=== PATIENT | male | born 1945 | race Caucasian/White ===

== ENCOUNTER 2018-11-11 07:30 | Inpatient (IN) | payer MEDICARE ==
[~2018-11-11] VITALS: Ht 170.2 cm; Wt 97.7 kg
[2018-11-21 14:41] LABS: BASOPHILS # (AUTO) 0.1 X10'3 (0-0.2); BASOPHILS % (AUTO) 0.9 % (0-1); EOSINOPHILS # (AUTO) 0.3 X10'3 (0-0.9); EOSINOPHILS % (AUTO) 4.8 % (0-6); LYMPHOCYTES # (AUTO) 1.9 X10'3 (1.1-4.8); LYMPHOCYTES % (AUTO) 26.4 % (21-51); MEAN CORPUSCULAR HEMOGLOBIN 29.7 PG (27.0-31.0); MEAN CORPUSCULAR HGB CONC 33.6 g/dL (33.0-36.5); MEAN CORPUSCULAR VOLUME 88.5 FL (78-98); MEAN PLATELET VOLUME 8.2 FL (7.4-10.4); MONOCYTES # (AUTO) 0.7 X10'3 (0-0.9); MONOCYTES % (AUTO) 9.2 % (2-12); NEUTROPHILS # (AUTO) 4.2 X10'3 (1.8-7.7); NEUTROPHILS % (AUTO) 58.7 % (42-75); PRE OP HEMATOCRIT 39.2 % (42.0-52.0); PRE OP HEMOGLOBIN 13.2 g/dL (14.0-17.9); PRE OP PLATELET COUNT 248 X10'3 (140-440); RED BLOOD COUNT 4.43 X10'6 (4.70-6.10); RED CELL DISTRIBUTION WIDTH 13.9 % (11.5-14.5)
[2018-11-21 14:42] LABS: CLARITY,URINE CLEAR (Clear); COLOR,URINE YELLOW (Yellow); GLUCOSE, URINE NEGATIVE (Neg); KETONES,URINE NEGATIVE (Neg); LEUKOCYTE ESTERASE ,URINE NEGATIVE (Neg); NITRITES, URINE NEGATIVE (Neg); OCCULT BLOOD,URINE NEGATIVE (Neg); PROTEIN,URINE NEGATIVE (Neg); UROBILINOGEN,URINE 0.2 E.U/dL (0.2-1.0)
[2018-11-21 14:52] LABS: ALBUMIN 3.8 G/DL (3.4-5.0); ALBUMIN/GLOBULIN RATIO 1.2 (1.1-1.5); ALKALINE PHOSPHATASE 82 IU/L (46-116); BLOOD UREA NITROGEN 16 MG/DL (7-18); BUN/CREATININE RATIO 15.4 (5.4-32.0); CALCIUM 9.2 MG/DL (8.5-10.1); CHLORIDE 104 MMOL/L (99-107); CREATININE 1.04 MG/DL (0.60-1.10); PRE OP ALT 32 U/L (30-65); PRE OP ANION GAP 9 (8-16); PRE OP AST 17 U/L (10-37); PRE OP BILIRUB, TOTAL 0.3 MG/DL (0.0-1.0); PRE OP GLUCOSE 88 MG/DL (70-104); PRE OP POTASSIUM 4.1 MMOL/L (3.4-5.1); PRE OP SODIUM 140 MMOL/L (135-145); TOTAL CARBON DIOXIDE 27.1 MMOL/L (24-32); TOTAL PROTEIN 7.1 G/DL (6.4-8.2); eGFR 70 ML/MIN
[2018-11-21 14:54] LABS: UA COLLECTION TYPE CLN CATCH MIDSTREAM
[2018-11-21] MEDS ORDERED: LISI10TA4 PO (15:16)
[2018-11-21] MEDS ORDERED: AMLO5TAB16 PO (15:16)
[2018-11-21] MEDS ORDERED: SILD20TA PO (16:41)
[2018-11-21] MEDS ORDERED: IBUP-1984 PO (16:41)
[2018-11-30] MEDS ORDERED: TRIA15OI9 TOP (11:32)
[2018-12-01] VITALS (21 sets, daily range): BP systolic 115–166; BP diastolic 47–92
[2018-12-01] MEDS ORDERED: ringers solution, lacted 1,000 ML IV SCH ×2 (05:00→09:12)
[2018-12-01] MEDS ORDERED: VANCOMYCIN 1,500MG inj. 1,500 MG in normal saline 250ml IV soln 280 ML IV ONE (05:30)
[2018-12-01] MEDS ORDERED: cefazolin/dext.iso 2gm/100 ML IV ONE (05:30)
[2018-12-01] MEDS ORDERED: famotidine 20mg tablet PO ONE (05:30)
[2018-12-01] MEDS ORDERED: NORMAL SALINE IV ONE ×2 (05:30→07:30)
[2018-12-01] MEDS ORDERED: TRANEXAMIC ACID IV ONE ×2 (05:30→07:30)
[2018-12-01] MEDS ORDERED: LIDOcaine 1% (10mg/ml) 2ml vial ONE (05:51)
[2018-12-01] MEDS ORDERED: ROPIVAcaine 0.5% (5mg/ml) 30ml vial ONE ×2 (06:57→07:17)
[2018-12-01] MEDS ORDERED: ketorolac trometh. 30mg/ml inj. ONE ×3 (06:57→09:36)
[2018-12-01] MEDS ORDERED: LIDOcaine 1%/PF 5ML 10 MG/ML VIAL ONE (07:12)
[2018-12-01] MEDS ORDERED: sevoflurane 250ml liquid IH ONE (07:12)
[2018-12-01] MEDS ORDERED: fentaNYL/PF 50MCG/1 ML 2ML syringe ONE (07:16)
[2018-12-01] MEDS ORDERED: MIDAZolam 5mg/5ml vial ONE (07:17)
[2018-12-01] MEDS ORDERED: propofol inj 20 ML IV ONE (07:20)
[2018-12-01] MEDS ORDERED: ePHEDrine 50MG/ML INJ. ONE (07:59)
[2018-12-01] MEDS ORDERED: dexamethasone sod phosphate 4mg/ml inj. ONE (08:03)
[2018-12-01] MEDS ORDERED: ondansetron/PF 4mg/2ml inj ONE (08:03)
[2018-12-01] MEDS ORDERED: meperidine/PF 25mg/ml syringe IV PRN ×3 (09:15)
[2018-12-01] MEDS ORDERED: morphine 4 MG/ML inj SYRINge IV PRN ×2 (09:15)
[2018-12-01] MEDS ORDERED: proCHLORperazine 10 MG/2 ml inj IV PRN (09:15)
[2018-12-01] MEDS ORDERED: ondansetron/PF 4mg/2ml inj IV PRN ×2 (09:15→09:45)
[2018-12-01] MEDS ORDERED: bisacodyl 10mg suppository rectal RC PRN (09:45)
[2018-12-01] MEDS ORDERED: magnesium hydroxide 30ml (MOM) UD suspension PO PRN (09:45)
[2018-12-01] MEDS ORDERED: HYDROmorphone inj. 0.5 MG/0.5 ML DISP.SYRIN IV PRN (09:45)
[2018-12-01] MEDS ORDERED: HYDROmorphone 1 mg/ml syringe IV PRN (09:45)
[2018-12-01] MEDS ORDERED: diphenhydrAMINE 25mg capsule PO PRN ×2 (09:45)
[2018-12-01] MEDS ORDERED: acetaminophen 325mg tablet PO PRN (09:45)
[2018-12-01] MEDS ORDERED: ibuprofen tablet 400 MG TABLET PO PRN (09:45)
[2018-12-01] MEDS ORDERED: oxyCODONE IR 5mg (immed. release) tablet PO PRN ×2 (09:45)
--- NOTE | 2018-12-01 09:52 | NUR ---
Received from OR via , accompanied by Anesthesiologist DR ARENAS and report given by Anesthesiolgist. AWAKENS TO VOICE. VITALS STABLE. DRESSING DI. AXEL PAIN. ONLY MINIMAL MOVEMENT TO RT FINGERS. IMMOBILIZER TO RUE.
[2018-12-01] MEDS ORDERED: ROPIVAcaine 0.2%/PF PAIN PUMP 400 ML IJ SCH (10:15)
[2018-12-01] MEDS ORDERED: ibuprofen 200mg tablet PO PRN (10:19)
--- NOTE | 2018-12-01 11:22 | NUR ---
Report called to receiving nurse. Transferred via BED Belongings . Special Issues communicated to receiving nurse. AWAKE AND ORIENTED. VITALS STABLE. DRESSING DI. AXEL PAIN. TO ORTHO RM 4012I AT THIS TIME.
[2018-12-01] MEDS ORDERED: tranexamic acid inj. 1,000 MG in normal saline 100ml IV soln 100 ML IV ONE (13:00)
[2018-12-01] MEDS: acetaminophen 325mg tablet PO SCH ×2 (13:49→20:39)
[2018-12-01] MEDS: potassium cl 20mEq in 1/2 NS 1,000 ML IV SCH ×2 (13:50→17:45)
[2018-12-01] MEDS: ketorolac tromethamine 15mg/ml inj. IV SCH ×2 (13:50→20:39)
[2018-12-01] MEDS: ceFAZolin 1GM/D5W- ADD-VANTAGE 50 ML IV SCH (15:55)
--- NOTE | 2018-12-01 18:25 | NUR ---
Patient in room ORTHO 4013B. I have received report from BETTY Hyde and had the opportunity to ask questions and assume patient care.
[2018-12-01] MEDS ORDERED: triamcinolone acet 0.1% cream 15gm TP PRN (20:00)
[2018-12-01] MEDS ORDERED: vancomycin/NS 1 GM ADD-VANTAGE 250 ML IV SCH (20:00)
[2018-12-01] MEDS: sildenafil citrate 20mg tablet PO SCH (20:39)
[2018-12-01] MEDS ORDERED: traMADol 50MG tablet PO PRN (20:50)
[2018-12-01] MEDS ORDERED: sennosides 8.6mg tablet PO SCH (21:00)
[2018-12-02] MEDS: ceFAZolin 1GM/D5W- ADD-VANTAGE 50 ML IV SCH (00:12)
[2018-12-02] MEDS: potassium cl 20mEq in 1/2 NS 1,000 ML IV SCH (00:12)
[2018-12-02 01:40] VITALS: BP 143/75
[2018-12-02] MEDS: acetaminophen 325mg tablet PO SCH ×2 (02:26→08:15)
[2018-12-02] MEDS: ketorolac tromethamine 15mg/ml inj. IV SCH ×2 (02:26→08:33)
[2018-12-02 06:10] VITALS: BP 161/87
--- NOTE | 2018-12-02 06:21 | NUR ---
Problems reprioritized. Patient report given, questions answered & plan of care reviewed with BETTY Crocker.
--- NOTE | 2018-12-02 06:30 | NUR ---
Patient in room ORTHO 4013. I have received report from Rosa Stahl RN and had the opportunity to ask questions and assume patient care.
[2018-12-02 06:43] LABS: BASOPHILS % (AUTO) 0.1 % (0-1); EOSINOPHILS % (AUTO) 0 % (0-6); HEMATOCRIT 36.8 % (42.0-52.0); HEMOGLOBIN 12.3 g/dl (14.0-17.9); LYMPHOCYTES # (AUTO) 1.3 X10'3 (1.1-4.8); LYMPHOCYTES % (AUTO) 6.9 % (21-51); MEAN CORPUSCULAR HEMOGLOBIN 29.9 PG (27.0-31.0); MEAN CORPUSCULAR HGB CONC 33.5 g/dL (33.0-36.5); MEAN CORPUSCULAR VOLUME 89.2 FL (78-98); MEAN PLATELET VOLUME 8.9 FL (7.4-10.4); MONOCYTES # (AUTO) 1.2 X10'3 (0-0.9); MONOCYTES % (AUTO) 6.1 % (2-12); NEUTROPHILS # (AUTO) 16.9 X10'3 (1.8-7.7); NEUTROPHILS % (AUTO) 86.9 % (42-75); PLATELET COUNT 225 X10'3 (140-440); RED BLOOD COUNT 4.12 X10'6 (4.70-6.10); RED CELL DISTRIBUTION WIDTH 13.8 % (11.5-14.5); WHITE BLOOD COUNT 19.5 X10'3 (4.5-11.0)
[2018-12-02 06:46] LABS: ANION GAP 8 (8-16); CHLORIDE 106 MMOL/L (99-107); POTASSIUM 4.5 MMOL/L (3.5-5.1); SODIUM 136 MMOL/L (135-145); TOTAL CARBON DIOXIDE 21.7 MMOL/L (24-32)
[2018-12-02] MEDS: sildenafil citrate 20mg tablet PO SCH (08:00)
[2018-12-02] MEDS ORDERED: amLODIPine 5mg tablet PO SCH (08:00)
[2018-12-02] MEDS ORDERED: lisinopril 10 MG tablet PO SCH (08:00)
[2018-12-02] MEDS ORDERED: aspirin 325mg tablet PO SCH (08:30)
[2018-12-02 10:00] VITALS: BP 164/81
--- NOTE | 2018-12-02 11:15 | NUR ---
Patient and taught all of Dr. Watt discharge instructions for reverse shoulder arthroplasty. Patient had all belongings and walked downstairs.
[2018-12-02] MEDS ORDERED: celeCOXIB 100mg capsule PO SCH (20:00)
[2018-12-03] MEDS ORDERED: acetaminophen 325mg tablet PO PRN (09:45)
== END 2018-12-02 11:15 | disposition home or self-care (01) | DRG 483 ==
LOC: PAS IN 12-01 05:30 → EDSTATUS 12-01 07:30 → ORTHO 4S 12-01 11:33
PROVIDERS: ADMIT Orthopaedic Surgery; ATTEND Orthopaedic Surgery
PROC: 0LS30ZZ Reposition Right Upper Arm Tendon, Open Approach (ICD-10-PCS; 2018-12-01)
PROC: 3E0T3BZ Introduction of Anesthetic Agent into Peripheral Nerves and Plexi, Percutaneous Approach (ICD-10-PCS; 2018-12-01)
PROC: 0RRJ00Z Replacement of Right Shoulder Joint with Reverse Ball and Socket Synthetic Substitute, Open Approach (ICD-10-PCS; principal; 2018-12-01 07:24)
DX: M19.011 Primary osteoarthritis, right shoulder (principal); M75.121 Complete rotator cuff tear or rupture of right shoulder, not specified as traumatic; M25.511 Pain in right shoulder; M75.21 Bicipital tendinitis, right shoulder; M65.811 Other synovitis and tenosynovitis, right shoulder; I10 Essential (primary) hypertension; Z88.5 Allergy status to narcotic agent; Z80.9 Family history of malignant neoplasm, unspecified; Z87.891 Personal history of nicotine dependence
CPT/HCPCS: 36415; 80051; 80053; 81003; 82948; 85025; 87070; 93005; 97116; 97161; 97530; A4565; A7000; G0378; J0690; J1100; J1885; J2001; J2250; J2405; J2704; J2795; J3010; J3370; J3490; J7030; J7040; J7120

== ENCOUNTER 2019-08-04 08:31 | Day surgery (SDC) | payer MEDICARE ==
[~2019-08-04] VITALS: Ht 170.2 cm; Wt 96.0 kg
[2019-08-04] VITALS (18 sets, daily range): BP systolic 101–164; BP diastolic 53–111
[~2019-08-04 08:31] MED LIST: AMLO5TAB16 PO; IBUP-1984 PO; LISI10TA4 PO; SILD20TA PO; TRIA15OI9 TOP
[2019-08-04] MEDS ORDERED: normal saline 1000ml 1,000 ML IV SCH ×2 (08:50→11:43)
[2019-08-04 09:19] LABS: BASOPHILS # (AUTO) 0.1 X10'3 (0-0.2); BASOPHILS % (AUTO) 1.2 % (0-1); EOSINOPHILS # (AUTO) 0.5 X10'3 (0-0.9); EOSINOPHILS % (AUTO) 6.2 % (0-6); HEMATOCRIT 39.8 % (42.0-52.0); HEMOGLOBIN 13.3 g/dl (14.0-17.9); LYMPHOCYTES # (AUTO) 1.6 X10'3 (1.1-4.8); LYMPHOCYTES % (AUTO) 20.2 % (21-51); MEAN CORPUSCULAR HEMOGLOBIN 29.6 PG (27.0-31.0); MEAN CORPUSCULAR HGB CONC 33.4 g/dL (33.0-36.5); MEAN CORPUSCULAR VOLUME 88.7 FL (78-98); MEAN PLATELET VOLUME 8.2 FL (7.4-10.4); MONOCYTES # (AUTO) 0.5 X10'3 (0-0.9); MONOCYTES % (AUTO) 6.5 % (2-12); NEUTROPHILS # (AUTO) 5.3 X10'3 (1.8-7.7); NEUTROPHILS % (AUTO) 65.9 % (42-75); PLATELET COUNT 279 X10'3 (140-440); RED BLOOD COUNT 4.48 X10'6 (4.70-6.10); RED CELL DISTRIBUTION WIDTH 14.2 % (11.5-14.5)
[2019-08-04] MEDS ORDERED: fentaNYL/PF 50MCG/1 ML 2ML syringe ONE ×3 (10:09→11:00)
[2019-08-04] MEDS ORDERED: midazolam 2 mg/2 ml injection ONE ×3 (10:09→11:00)
== END 2019-08-04 13:30 | disposition home or self-care (01) ==
LOC: SSTAY O 08:31
PROVIDERS: ATTEND Radiology Diagnostic Radiology
DX: M89.8X8 Other specified disorders of bone, other site (principal); C61 Malignant neoplasm of prostate; Z88.8 Allergy status to other drugs, medicaments and biological substances; Z79.899 Other long term (current) drug therapy
CPT/HCPCS: 20225; 36415; 77012; 85025; 99152; 99153; J2250; J3010; J7030

== ENCOUNTER 2019-11-28 06:51 | Day surgery (SDC) | payer MEDICARE ==
[2019-11-28] VITALS (13 sets, daily range): BP systolic 118–166; BP diastolic 64–95
[~2019-11-28] VITALS: Ht 170.2 cm; Wt 96.6 kg
[~2019-11-28 06:51] MED LIST changes: -TRIA15OI9 TOP
[2019-11-28] MEDS ORDERED: normal saline 1000ml 1,000 ML IV SCH (07:20)
[2019-11-28 07:52] LABS: BASOPHILS # (AUTO) 0.1 X10'3 (0-0.2); BASOPHILS % (AUTO) 1.1 % (0-1); EOSINOPHILS # (AUTO) 0.4 X10'3 (0-0.9); EOSINOPHILS % (AUTO) 5.9 % (0-6); HEMATOCRIT 35.5 % (42.0-52.0); HEMOGLOBIN 11.9 g/dl (14.0-17.9); LYMPHOCYTES # (AUTO) 1.9 X10'3 (1.1-4.8); LYMPHOCYTES % (AUTO) 27.9 % (21-51); MEAN CORPUSCULAR HEMOGLOBIN 29.6 PG (27.0-31.0); MEAN CORPUSCULAR HGB CONC 33.4 g/dL (33.0-36.5); MEAN CORPUSCULAR VOLUME 88.5 FL (78-98); MEAN PLATELET VOLUME 7.9 FL (7.4-10.4); MONOCYTES # (AUTO) 0.6 X10'3 (0-0.9); MONOCYTES % (AUTO) 8.1 % (2-12); PLATELET COUNT 324 X10'3 (140-440); RED CELL DISTRIBUTION WIDTH 14.1 % (11.5-14.5)
[2019-11-28 08:05] LABS: ALANINE AMINOTRANSFERASE 32 U/L (12-78); ALBUMIN 3.3 G/DL (3.4-5.0); ALKALINE PHOSPHATASE 306 IU/L (46-116); ANION GAP 11 (8-16); ASPARTATE AMINO TRANSFERASE 20 U/L (10-37); BILIRUBIN,TOTAL 0.3 MG/DL (0.1-1.0); BLOOD UREA NITROGEN 17 MG/DL (7-18); BUN/CREATININE RATIO 13.9 (5.4-32.0); CALCIUM 9.1 MG/DL (8.5-10.1); CHLORIDE 106 MMOL/L (99-107); CREATININE 1.22 MG/DL (0.60-1.10); GLUCOSE 130 MG/DL (70-104); POTASSIUM 3.9 MMOL/L (3.5-5.1); SODIUM 142 MMOL/L (135-145); TOTAL CARBON DIOXIDE 25.4 MMOL/L (24-32); TOTAL PROTEIN 6.7 G/DL (6.4-8.2); eGFR 58 ML/MIN
[2019-11-28] MEDS ORDERED: LEUP30KI3 IM (08:13)
[2019-11-28] MEDS ORDERED: gelatin sponge, absorbable (Gelfoam 12-7MM) sponge TP ONE (08:18)
[2019-11-28] MEDS ORDERED: fentaNYL/PF 50MCG/1 ML 2ML syringe ONE ×2 (08:27→08:54)
[2019-11-28] MEDS ORDERED: midazolam 2 mg/2 ml injection ONE ×2 (08:27→08:54)
--- NOTE | 2019-11-28 09:30 | NUR ---
pt returned to room. pt denies pain, esthela bandage to site is CD&I, no s/s of bleeding or infection. pt sitting up in bed, vs stable as charted. Addendum: 11/28/19 at 0939 by Danuta Marcelino RN pt requests yogurt and coffee
== END 2019-11-28 11:25 | disposition home or self-care (01) ==
LOC: SSTAY O 06:51
PROVIDERS: ATTEND Radiology Vascular & Interventional Radiology
DX: M89.8X8 Other specified disorders of bone, other site (principal); C79.51 Secondary malignant neoplasm of bone; Z85.46 Personal history of malignant neoplasm of prostate; Z88.5 Allergy status to narcotic agent; Z88.8 Allergy status to other drugs, medicaments and biological substances; Z11.59 Encounter for screening for other viral diseases; Z98.890 Other specified postprocedural states; Z87.891 Personal history of nicotine dependence; Z79.899 Other long term (current) drug therapy
CPT/HCPCS: 20220; 36415; 77012; 80053; 85025; 88341; 88342; 99152; 99153; J2250; J3010; J7030; U0003; 20225; 88307; 88311